=== PATIENT | female | born 1980 | race Caucasian/White ===

== ENCOUNTER → 2024-03-02 08:47 | Outpatient (REF) | payer OTHER, SELFPAY | LOC: RAD 08:47 | PROVIDERS: ATTENDING PHYSICIAN Nurse Practitioner Family; FAMILY PHYSICIAN Nurse Practitioner Adult Health | DX: E66.01 Morbid (severe) obesity due to excess calories (principal); I10 Essential (primary) hypertension; G47.30 Sleep apnea, unspecified; R73.03 Prediabetes; E04.2 Nontoxic multinodular goiter | CPT/HCPCS: 71046; 74246; 76700 ==

== ENCOUNTER 2024-04-27 19:02 | Outpatient (RCR) | payer OTHER, SELFPAY | END 2024-04-27 23:59 | disposition home or self-care (01) | LOC: RPT 19:02 | PROVIDERS: ATTENDING PHYSICIAN Nurse Practitioner Adult Health | DX: M54.16 Radiculopathy, lumbar region (principal); Z73.6 Limitation of activities due to disability; R25.2 Cramp and spasm; M79.661 Pain in right lower leg; R26.89 Other abnormalities of gait and mobility | CPT/HCPCS: 97110; 97162 ==